=== PATIENT | female | born 1980 | race Caucasian/White ===

== ENCOUNTER 2016-08-20 09:46 | Emergency (ER) | payer OTHER ==
--- NOTE | 2016-08-20 10:48 | UC ---
Throat Pain/Nasal Ghassan HPI - HPI Summary HPI Summary: Mild nasal congestion and cough starting 08/16/16. ST suddenly much worse 2 days ago, difficulty swallowing, fever, malaise. Hx of repeated strep, this feels like that. 12-year-old son also got sick with ST and congestion on same day, has positive RST. Pt had c-spine surgery in late Jun. - History of Current Complaint Chief Complaint: UCRespiratory Stated Complaint: SORE THROAT EAR PAIN Time Seen by Provider: 08/20/16 10:08 Hx Obtained From: Patient Hx Last Menstrual Period: n/a ?: No Onset/Duration: Gradual Onset, Lasting Days Severity: Moderate Cough: Nonproductive Associated Signs & Symptoms: Positive: Nasal Discharge, Fever - Allergies/Home Medications Allergies/Adverse Reactions: Allergies Allergy/AdvReac Type Severity Reaction Status Date / Time ENVIRONMENTAL/SEASONAL Allergy Runny Uncoded 08/20/16 10:21 ALLERGIES nose, Stuffiness, PMH/Surg Hx/FS Hx/Imm Hx Previously Healthy: No - lupus, fibromyalgia Endocrine History Of: Denies: Diabetes, Thyroid Disease Cardiovascular History Of: Reports: Cardiac Disorders - tachacardia, Hypertension Respiratory History Of: Denies: COPD, Asthma GI/ History Of: Denies: Ulcer Neurological History Of: Reports: Migraine Psychological History Of: Reports: Anxiety - NO MEDS, Depression - Surgical History Surgical History: Yes Surgery Procedure, Year, and Place: LEEP. APPENDECTOMY 1989. CERVICAL CA 2006. LAPAROSCOPIC CHOLECYSTECTOMY 1995. tubal ligation. neck fusion vertabrae jun 21, 2016. Uterine Ablasion - Family History Known Family History: Positive: Hypertension - Social History Lives: With Family Alcohol Use: None Substance Use Type: None Smoking Status (MU): Former Smoker Type: Cigarettes Amount Used/How Often: 4 per day Have You Smoked in the Last Year: Yes When Did the Patient Quit Smoking/Using Tobacco: 06/10/14 - Immunization History Most Recent Influenza Vaccination: fall 2015 Most Recent Pneumonia Vaccination: fall 2015 Review of Systems Constitutional: Fever Skin: Negative Eyes: Negative ENT: Sore Throat, Nasal Discharge Respiratory: Cough Cardiovascular: Negative Gastrointestinal: Negative Genitourinary: Negative Motor: Negative Neurovascular: Negative Musculoskeletal: Negative Neurological: Negative Psychological: Negative All Other Systems Reviewed And Are Negative: Yes Physical Exam Triage Information Reviewed: Yes Appearance: Pain Distress - mild, Obese Vital Signs: Initial Vital Signs Temp 97.3 F 08/20/16 10:13 Pulse 103 08/20/16 10:13 Resp 16 08/20/16 10:13 BP 113/82 08/20/16 10:13 Pulse Ox 100 08/20/16 10:13 Vital Signs Reviewed: Yes Eye Exam: Normal Eyes: Positive: Conjunctiva Clear ENT: Positive: Hearing grossly normal, Pharyngeal erythema, TMs normal, Tonsillar exudate Dental Exam: Normal Neck exam: Normal Neck: Positive: Supple, Nontender, No Lymphadenopathy Respiratory Exam: Normal Respiratory: Positive: Chest non-tender, Lungs clear, Normal breath sounds, No respiratory distress, No accessory muscle use Cardiovascular: Positive: No Murmur, Tachycardia Musculoskeletal Exam: Normal Neurological Exam: Normal Psychological Exam: Normal Skin Exam: Normal Throat Pain/Nasal Course/Dx - Differential Dx/Diagnosis Provider Diagnoses: strep pharyngitis Discharge - Discharge Plan Condition: Stable Disposition: HOME Prescriptions: Amoxicillin SUSP* [Amoxicillin 400 MG/5 ML SUSP*] 800 mg PO BID #200 ml Patient Education Materials: Tonsillitis (ED) Additional Instructions: As we discussed, I am treating you clinically for strep given your exam findings and your history of repeated strep. If you are not fever-free within 48 hours, or if you are worsening, please see your primary care provider or return here.
[2016-08-20 10:51] VITALS: BP 113/82
== END 2016-08-20 10:57 | disposition home or self-care (01) ==
LOC: UCEAST 09:46
DX: J02.0 Streptococcal pharyngitis (principal); E66.9 Obesity, unspecified; Z90.49 Acquired absence of other specified parts of digestive tract; Z87.891 Personal history of nicotine dependence
CPT/HCPCS: 99212; G0463

== ENCOUNTER 2017-02-05 07:29 | Emergency (ER) | payer OTHER ==
[2017-02-05 07:35] VITALS: BP 143/95
[2017-02-05] MEDS ORDERED: Albuterol 2.5 MG/3 ML NEB.SOL* (0.083%) INH ONE (08:08)
--- NOTE | 2017-02-05 08:22 | UC ---
Respiratory Complaint HPI - HPI Summary HPI Summary: Patient presents with a past medical history of cervical fusion. She persents today with complaints of persistent coughing after treatment two weeks ago for bronchitis with zpack. She states that she continues to have "coughing fits" that leave her breathless, and she now has pain in the right side of her thoracic back when she coughs. She reports associated wheezing. She denies fever , chills, chest pain, sputum production associated with her cough. - History of Current Complaint Chief Complaint: UCRespiratory Stated Complaint: COUGH SOB Time Seen by Provider: 02/05/17 08:02 Hx Obtained From: Patient Hx Last Menstrual Period: menopause ?: No Onset/Duration: Lasting Weeks Timing: Intermittent Episodes Severity Initially: Severe Pain Intensity: 5 Character: Cough: Nonproductive Aggravating Factors: Nothing Alleviating Factors: Spontaneous Resolution Associated Signs And Symptoms: Positive: Dyspnea, Wheezing - Risk Factors Pulmonary Embolism Risk Factors: Negative Cardiac Risk Factors: Smoking Pseudomonas Risk Factors: Negative Tuberculosis Risk Factors: Negative - Allergies/Home Medications Allergies/Adverse Reactions: Allergies Allergy/AdvReac Type Severity Reaction Status Date / Time ENVIRONMENTAL/SEASONAL Allergy Runny Uncoded 12/28/16 11:00 ALLERGIES nose, Stuffiness, PMH/Surg Hx/FS Hx/Imm Hx Previously Healthy: Yes Respiratory History: Bronchitis, Other - history of smoking. Other Respiratory History: bronchitis - Surgical History Surgical History: Yes Surgery Procedure, Year, and Place: LEEP. APPENDECTOMY 1989. CERVICAL CA 2006. LAPAROSCOPIC CHOLECYSTECTOMY 1995. tubal ligation. neck fusion vert[place]rae jun 21, 2016. Uterine Ablasion - Family History Known Family History: Positive: Hypertension, Diabetes - Social History Alcohol Use: None Substance Use Type: None Smoking Status (MU): Light Every Day Tobacco Smoker Type: Cigarettes Amount Used/How Often: 4 per day Have You Smoked in the Last Year: Yes When Did the Patient Quit Smoking/Using Tobacco: 06/10/14 - Immunization History Most Recent Influenza Vaccination: fall 2015 Most Recent Pneumonia Vaccination: fall 2015 Review of Systems Respiratory: Shortness Of Breath, Cough, Other - wheezing All Other Systems Reviewed And Are Negative: Yes Physical Exam Triage Information Reviewed: Yes Appearance: Well-Appearing Vital Signs: Initial Vital Signs Pulse 101 02/05/17 07:32 Resp 22 02/05/17 07:32 BP 143/95 02/05/17 07:32 Pulse Ox 100 02/05/17 07:32 Vital Signs Reviewed: Yes Eye Exam: Normal ENT Exam: Normal Neck exam: Normal Respiratory: Positive: Rhonchi, Wheezing Cardiovascular Exam: Normal Skin Exam: Normal UC Diagnostic Evaluation - Laboratory O2 Sat by Pulse Oximetry: 100 Re-Evaluation - Re-Evaluation First Eval Change: Improved - patient reported improvement after albuterol treatment. Respiratory Course/Dx - Course Course Of Treatment: Patient presents with persistent coughing and wheezing following a diagnosis of bronchitis, and threatment with zpak. Vital signs were reviewed and her pulse rate was 101 following coughing. A chest xray was negative. She received an albuterol treatment with little improvement reported in her symptomatolgy. She was retreated with doxycycline, prednisone, and albuterol. She was also encouraged to stop smoking. If for any reason her symrpoms worsen, persist and do no improve as anticipated she will need to be seem by a decorating kiln operator. I suspect that she is experiencing reactive airway symtpoms from the respiratory infection, and given her history of smoking and ongoing symtoms at this time retreatment is indicated. - Differential Dx/Diagnosis Differential Diagnosis/HQI/PQRI: Bronchitis Provider Diagnoses: Chronic bronchitis Discharge - Discharge Plan Condition: Stable Disposition: HOME Prescriptions: Albuterol HFA INHALER* [Ventolin HFA Inhaler*] 1 puff INH Q4H PRN #1 mdi PRN Reason: bronchitis reactive airway Benzonatate [TESSALON 200 MG CAP] 200 mg PO TID PRN #21 cap PRN Reason: Cough DOXYcycline CAP(*) [DOXYcycline 100MG CAP(*)] 100 mg PO BID #20 cap predniSONE TAB* [Deltasone TAB*] 20 mg PO DAILY #5 tab Patient Education Materials: Acute Bronchitis (ED), Wheezing (ED) Referrals: Santa De La Torre, SHALE PROCESSING TECHNICIAN [Primary Care Provider] -
--- NOTE | 2017-02-05 08:35 | RAD ---
HISTORY: Persistent cough COMPARISONS: March 12, 2004 VIEWS: 4: Frontal dual-energy and lateral views of the chest. FINDINGS: CARDIOMEDIASTINAL SILHOUETTE: The cardiomediastinal silhouette is normal. MJ: The mj are normal. PLEURA: The costophrenic angles are sharp. No pleural abnormalities are noted. LUNG PARENCHYMA: The lungs are clear. ABDOMEN: The upper abdomen is clear. There is no subphrenic gas. BONES AND SOFT TISSUES: No bone or soft tissue abnormalities are noted. OTHER: None. IMPRESSION: NO ACTIVE CARDIOPULMONARY DISEASE.
== END 2017-02-05 09:02 | disposition home or self-care (01) ==
LOC: UCEAST 07:29
DX: J42 Unspecified chronic bronchitis (principal); Z78.0 Asymptomatic menopausal state; Z87.891 Personal history of nicotine dependence; Z85.41 Personal history of malignant neoplasm of cervix uteri
CPT/HCPCS: 71020; 99212; G0463

== ENCOUNTER 2019-02-17 15:05 | Emergency (ER) | payer OTHER ==
--- OUTSIDE RECORDS SUMMARY | 2019-02-17 15:33 | XMS REPORT | Continuity of Care Document ---
:1980 External Reference #:[id number] Author Name Coty Chauhan NP (transmitted by agent of provider Minerva Luna) Address [address] [place] [address] Care Team Providers Name Role Phone Santa De La Torre A.N.P - Nurse Care Team Information Technician'S Helper [phone] Practitioner Problems Active Problems Provider Date Insomnia Rosana Pacheco M.D. Onset: 07/05/2011 Ex-smoker Rosana Pacheco M.D. Onset: 07/05/2011 Gastroesophageal reflux disease Rosana Pacheco M.D. Onset: 07/05/2011 Sleep apnea Rosana Pacheco M.D. Onset: 07/05/2011 Generalized anxiety disorder Rosana Pacheco M.D. Onset: 07/05/2011 Obesity Rosana Pacheco M.D. 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 Onset: 01/26/2019 Social History Type Date Description Comments Sex Unknown Tobacco Use Start: Unknown End: Former Cigarette Smoker Smoked 1 1/2 ppd Unknown for 19 years Tobacco Use Start: Unknown Currently smokes 1-5 Cigarettes Daily Smoking Status Reviewed: 02/02/19 Currently smokes 1-5 Cigarettes Daily ETOH Use Denies alcohol use Recreational Drug Use Denies Drug Use Tobacco Use Start: Unknown End: Patient is a former Unknown smoker Exercise Type/Frequency Exercises regularly Allergies, Adverse Reactions, Alerts Active Allergies Reaction Severity Comments Date seasonal 07/05/2011 Medications Active Medications SIG Qnty Indications Ordering Date Provider Cholestyramine please take 1units Coty Chauhan, 02/02/2019 4gm Packet every other day DUST BRUSH ASSEMBLER until symptoms resolve Metoprolol Tartrate 1 by mouth Kelly Preston, 01/26/2019 100mg daily M.D. Tablets Ibgard samples given 5caps Coty Lizers, 01/23/2019 90mg Capsules ER DUST BRUSH ASSEMBLER Ranitidine 150 Maximum 2 tablets at 30tabs Coty Chauhan, 01/12/2019 Strength hour of sleep DUST BRUSH ASSEMBLER 150mg Tablets as directed Miralax three samples, 357gm Cotytano Chauhan, 01/12/2019 3350NF Powder take one 8 oz DUST BRUSH ASSEMBLER glass nightly Compression Stockings Wear daily 2units Mandy Dharmesh, 04/12/2014 20-30 N.P. Misc Meloxicam take one tab Unknown 7.5mg Tablets twice daily as needed for pain Vitamin C 1 by mouth Unknown 250mg Tablets every day Montelukast Sodium 1 by mouth Unknown 10mg Tablets every day Aripiprazole 1 by mouth Unknown 5mg Tablets every day Hydroxychloroquine take one tablet Unknown Sulfate by mouth twice 200mg Tablets a day Amlodipine Besylate 1 by mouth Unknown 5mg Tablets every day Duloxetine HCL 1 by mouth Unknown 60mg Caps DR every day Part Quetiapine Fumarate 1 at bedtime Unknown 50mg Tablets Folic Acid take one Unknown 1mg Tablets capsule/tablet daily by mouth Cyclobenzaprine HCL take 1 tab by Unknown 10mg mouth 2-3 times Tablets a day as needed Oxybutynin Chloride ER 1 by mouth Unknown 5mg every day Tablets ER 24HR Topiramate 1 tab by mouth Unknown 50mg Tablets twice a day Aspirin 81 Low Dose 1 by mouth Unknown 81mg every day Chewtabs Lorazepam 1 po bid d Unknown 1mg Tablets Nortriptyline HCL take one tablet Unknown 50mg Capsules by mouth daily. Latuda 1 by mouth Unknown 40mg Tablets every day Metformin HCL 2 by mouth Unknown 500mg Tablets twice a day Prednisone 1 by mouth Unknown 5mg Tablets every day Basaglar Kwikpen inject 10units Unknown 100Unit/ML s/c once daily Solution Pen-Inject Control Pills qd Unknown Ambien CR 1 every night Unknown 12.5mg Tablets ER at bedtime as needed mdd 1 mdd 1 mdd 1 Potassium Chloride ER Take One Tablet Unknown 10Meq By Mouth Every Tablets ER Day With Food Gabapentin Take One Unknown 300mg Capsules Capsule By Mouth AT Bedtime Mupirocin Apply To Leg Unknown 2% Ointment Wounds Two Times A Day For Seven Days Vitamin D3 Take One Unknown 2000Unit Capsules Capsule By Mouth Every Day Olanzapine Take One Tablet Unknown 2.5mg Tablets By Mouth AT Bedtime Nabumetone Take One Tablet Unknown 500mg Tablets By Mouth Twice A Day Cetirizine HCL Take One Tablet Unknown 10mg Tablets By Mouth Every Day Iron Take One Tablet Unknown 325(65Fe) mg Tablets By Mouth Twice A Day With Food Torsemide Take One Tablet Unknown 20mg Tablets By Mouth Every Day Ropinirole HCL Take One Tablet Unknown 1mg Tablets By Mouth AT Bedtime Pantoprazole Sodium 1 po qd Unknown 40mg Tablets DR Vitamin B-12 Take One Tablet Unknown 500mcg Tablets By Mouth Every Day Lyrica 1 capsule by Unknown 100mg Capsules mouth twice a day Tizanidine HCL 1 cap by mouth Unknown 2mg Capsules every 6 hours as needed Methotrexate 8 tbs by mouth Unknown 2.5mg Tablets every week Morphine Sulfate Take One Tablet Unknown 15mg Tablets By Mouth Twice A Day as Needed For Pain Maximum Daily Dose 2 Morphine Sulfate ER Take One Tablet Unknown 30mg By Mouth Twice Tablets ER A Day Maximum Daily Dose 2 Carbidopa-Levodopa take 1 po qd Unknown 10-100mg Tablets Immunizations Description No Information Available Vital Signs Date Vital Result Comment 02/02/2019 4:03pm Height 64 inches 5'4" Weight 261.00 lb Heart Rate 101 /min BP Systolic 111 mmHg BP Diastolic 79 mmHg O2 % BldC Oximetry 97 % BMI (Body Mass Index) 44.8 kg/m2 01/26/2019 2:03pm Height 64 inches 5'4" Weight 267.00 lb with shoes Heart Rate 81 /min BP Systolic Sitting 120 mmHg Rue, 120/79 Lue BP Diastolic Sitting 72 mmHg Rue, 120/79 Lue BP Systolic Standing 120 mmHg Lue BP Diastolic Standing 79 mmHg Lue BMI (Body Mass Index) 45.8 kg/m2 Ejection Fraction 45-50% Echo 12/16/18 Results Test Date Facility Test Result H/L Range Note CBC No Diff 01/28/2019 [facility] White Blood 14.6 10^3/uL High 3.5-10.[address] [place] [address] [phone] Red Blood Count 3.75 10^6/uL Normal 3.70-4.87 Hemoglobin 12.1 g/dL Normal 12.0-16.0 Hematocrit 37 % Normal 35-47 Mean Corpuscular Volume 97 fL Normal 80-97 Mean Corpuscular Hemoglobin 32 pg High 27-31 Mean Corpuscular HGB Conc 33 g/dL Normal 31-36 Red Cell Distribution Width 16 % High 10-15 Platelet Count 478 10^3/uL High 150-450 Mean Platelet Volume 7.4 fL Normal 7.4-10.4 Comp Metabolic 01/28/2019 [facility] Sodium 140 mmol/L Normal 135-[address] [place] [address] [phone] Potassium 3.8 mmol/L Normal 3.5-5.0 Chloride 105 mmol/L Normal 101-111 Co2 Carbon Dioxide 25 mmol/L Normal 22-32 Anion Gap 10 mmol/L Normal 2-11 Glucose 100 mg/dL Normal 70-100 Blood Urea Nitrogen 15 mg/dL Normal 6-24 Creatinine 0.90 mg/dL Normal 0.51-0.95 BUN/Creatinine Ratio 16.7 Normal 8-20 Calcium 9.5 mg/dL Normal 8.6-10.3 Total Protein 6.3 g/dL Low 6.4-8.9 Albumin 3.9 g/dL Normal 3.2-5.2 Globulin 2.4 g/dL Normal 2-4 Albumin/Globulin Ratio 1.6 Normal 1-3 Total Bilirubin 0.30 mg/dL Normal 0.2-1.0 Alkaline Phosphatase 82 U/L Normal 34-104 Alt 22 U/L Normal 7-52 Ast 23 U/L Normal 13-39 Egfr Non- 69.7 >60 Egfr 84.3 >60 1 Laboratory test 01/28/2019 [facility] C Reactive 59.93 mg/L High <8.[address] [place] [address] [phone] Hemoglobin A1c (Glyco HGB) 5.9 % High 4.0-5.6 2 1 Because ethnic data is not always readily available, this report includes an eGFR for both -Americans and non- Americans. The National Kidney Disease Education Program (NKDEP) does not endorse the use of the MDRD equation for patients that are not between the ages of 18 and 70, are , have extremes of body size, muscle mass, or nutritional status, or are non- or non-. According to the National Kidney Foundation, irrespective of diagnosis, the stage of the disease is based on the level of kidney function: Stage Description GFR(mL/min/1.73 m(2)) 1 Kidney damage with normal or decreased GFR 90 2 Kidney damage with mild decrease in GFR 60-89 3 Moderate decrease in GFR 30-59 4 Severe decrease in GFR 15-29 5 Kidney failure <15 (or dialysis) 2 Therapeutic target for the treatment of diabetes mellitus patients is <7% HBA1C, and in selective patients <6.0%. Please refer to [employer] diabetic care guidelines for further information. Procedures Date Code Description Status 01/26/2019 71974 EKG Tracing & Interpretation Completed 12/16/2018 69030 ECHO Transthorasic Realtime 2D W Doppler & Color Flow Completed Hosp 01/20/2016 74712535 Colonoscopy Completed Medical Devices Description No Information Available Encounters Type Date Location Provider Dx Diagnosis Office Visit 01/12/2019 [facility] Gastroenterology Coty Chauhan NP K58.8 Other irritable 10:15a bowel syndrome K59.9 Functional intestinal disorder, unspecified K21.0 Gastro-esophageal reflux disease with esophagitis K29.70 Gastritis, unspecified, without bleeding Z68.42 Body mass index (BMI) 45.0-49.9, adult Office Visit 01/08/2019 Neurosurgery Luis F 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 01/26/2019 R06.02 Shortness of breath Kelly Johnston M.D. 01/26/2019 I10 Essential (primary) hypertension Kelly Johnston M.D. 01/26/2019 Z82.49 Family history of ischemic heart disease Kelly Johnston M.D. and other diseases of the circulatory system 01/26/2019 M32.9 Systemic lupus erythematosus, unspecified Kelly Johnston M.D. 01/26/2019 E11.8 Type 2 diabetes mellitus with unspecified Kelly Johnston M.D. complications 01/12/2019 K58.8 Other irritable bowel syndrome Coty Chauhan NP 01/12/2019 K59.9 Functional intestinal disorder, unspecified Coty Chauhan NP 01/12/2019 K21.0 Gastro-esophageal reflux disease with Coty Chauhan NP esophagitis 01/12/2019 K29.70 Gastritis, unspecified, without bleeding Coty Chauhan NP 01/12/2019 Z68.42 Body mass index (BMI) 45.0-49.9, adult Coty Chauhan NP 01/08/2019 M47.816 Lumbar spondylosis JOSÉ MIGUEL Brenner 12/16/2018 I42.9 Cardiomyopathy, unspecified Eddie Garcia M.D. Plan of Treatment Future Appointment(s):03/02/2019 3:30 pm - JOSÉ MIGUEL Brenner at [facility]05/05/2019 11:00 am - Angelique Beal MD at [facility] Vmpylhruguu24/06/ 2019 2:30 pm - Aarti Mondragon N.PMarcella at [facility]02/05/2019 10: 20 am - Kelly Johnston M.D. at [facility] [place] [facility] [place] Functional Status Description No Information Available Mental Status Description No Information Available Referrals Description No Information Available
--- OUTSIDE RECORDS SUMMARY | 2019-02-17 15:33 | XMS REPORT | Continuity of Care Document ---
:1980 External Reference #:[id number] Author Name Daisha Vilchis MD (transmitted by agent of provider Earlene Brown) Address [address] [facility], [address] [address] Care Team Providers Name Role Phone Santa De La Torre A.N.P - Nurse Care Team Information Correction Officer [employer] [phone] Practitioner Problems Active Problems Provider Date Insomnia [...] smokes 1-5 Cigarettes Daily Smoking Status Reviewed: 02/04/19 Currently smokes 1-5 Cigarettes Daily ETOH Use Denies alcohol use Recreational Drug Use Denies Drug Use Tobacco Use Start: Unknown End: Patient is a former Unknown smoker Exercise Type/Frequency Exercises regularly Allergies, Adverse Reactions, Alerts Active Allergies Reaction Severity Comments Date seasonal 07/05/2011 Medications Active Medications SIG Qnty Indications Ordering Date Provider Levalbuterol Tartrate 1 puff 2-3 15gm R06.02 Daisha Vilchis, 02/04/2019 45mcg/Act times daily as MD Aerosol needed for sob Advair Diskus 1 puff Twice R06.02 Daisha Vilchis, 02/04/2019 250-50mcg/Dose Daily MD Aerosol Cholestyramine please take 1units Coty Chauhan, 02/02/2019 4gm Packet every other day MANAGER SHIP until symptoms resolve Metoprolol Tartrate 1 by mouth Kelly Johnston, 01/26/2019 100mg daily M.D. Tablets Ibgard samples given 5caps Coty Chauhan, 01/23/2019 90mg Capsules ER MANAGER SHIP Ranitidine 150 Maximum 2 tablets at 30tabs Coty Chauhan, 01/12/2019 Strength hour of sleep MANAGER SHIP 150mg Tablets as directed Miralax three samples, 357gm Coty Chauhan, 01/12/2019 3350NF Powder take one 8 oz MANAGER SHIP glass nightly Compression Stockings Wear daily 2units Mandy Barroso, 04/12/2014 20-30 N.P. Misc Folic Acid take one Unknown 1mg Tablets capsule/tablet daily by mouth Quetiapine Fumarate 1 at bedtime Unknown 50mg Tablets Duloxetine HCL 1 by mouth Unknown 60mg Caps DR every day Part Amlodipine Besylate 1 by mouth Unknown 5mg Tablets every day Hydroxychloroquine take one tablet Unknown Sulfate by mouth twice 200mg Tablets a day Aripiprazole 1 by mouth Unknown 5mg Tablets every day Montelukast Sodium 1 by mouth Unknown 10mg Tablets every day Vitamin C 1 by mouth Unknown 250mg Tablets every day Meloxicam take one tab Unknown 7.5mg Tablets twice daily as needed for pain Cyclobenzaprine HCL take 1 tab by Unknown [...] Available Vital Signs Date Vital Result Comment 02/04/2019 10:42am Height 64 inches 5'4" Weight 261.00 lb Heart Rate 92 /min BP Systolic Sitting 120 mmHg BP Diastolic Sitting 60 mmHg O2 % BldC Oximetry 97 % BMI (Body Mass Index) 44.8 kg/m2 Neck Circumference in inches 18.25 02/02/2019 4:03pm Height 64 inches 5'4" Weight 261.00 lb Heart Rate 101 /min BP Systolic 111 mmHg BP Diastolic 79 mmHg O2 % BldC Oximetry 97 % BMI (Body Mass Index) 44.8 kg/m2 Results Test Date Facility Test Result H/L Range Note CBC No Diff 01/28/2019 [facility] White Blood 14.6 10^3/uL High 3.5-10.[address] [place] [address] [phone] Red Blood Count 3.75 10^6/uL Normal 3.70-4.87 Hemoglobin 12.1 g/dL Normal 12.0-16.0 Hematocrit 37 % Normal 35-47 Mean Corpuscular Volume 97 fL Normal 80-97 Mean Corpuscular Hemoglobin 32 pg High 27-31 Mean Corpuscular HGB Conc 33 g/dL Normal 31-36 Red Cell Distribution Width 16 % High 10-15 Platelet Count 478 10^3/uL High 150-450 Mean Platelet Volume 7.4 fL Normal 7.4-10.4 Comp Metabolic 01/28/2019 [facility] Sodium 140 mmol/L Normal 135-[address] [place] [address] [phone] Potassium 3.8 mmol/L Normal 3.5-5.0 Chloride 105 [...] Egfr 84.3 >60 1 Laboratory test 01/28/2019 [facility] C Reactive 59.93 mg/L High <8.[address] [place] [address] [phone] Hemoglobin A1c (Glyco HGB) 5.9 % High [...] in selective patients <6.0%. Please refer to [employer] diabetic care guidelines for further information. Procedures Date Code Description Status 01/26/2019 36294 EKG Tracing & Interpretation Completed 12/16/2018 90285 ECHO Transthorasic Realtime 2D W Doppler & Color Flow Completed Hosp 01/20/2016 35036403 Colonoscopy Completed Medical Devices Description No Information Available Encounters Type Date Location Provider Dx Diagnosis Office Visit 01/26/2019 [facility] Kelly Johnston, I42.9 Cardiomyopathy, 2:10p Of Mindi MChad unspecified R06.02 Shortness of breath I10 Essential (primary) hypertension Z82.49 Family hx of ischem heart dis and oth dis of the circ sys M32.9 Systemic lupus erythematosus, unspecified E11.8 Type 2 diabetes mellitus with unspecified complications Office Visit 01/12/2019 10:15a [facility] Coty Chauhan, 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 [...] 01/12/2019 K59.9 Functional intestinal disorder, unspecified Coty Chauhan, MEREDITH 01/12/2019 K21.0 Gastro-esophageal reflux disease with Coty Chauhan MANAGER SHIP esophagitis 01/12/2019 K29.70 Gastritis, unspecified, without bleeding Coty Chauhan NP 01/12/2019 Z68.42 Body mass index (BMI) 45.0-49.9, adult Coty Chauhan NP 01/08/2019 M47.816 Lumbar spondylosis JOSÉ MIGUEL Brenner 12/16/2018 I42.9 Cardiomyopathy, unspecified Eddie Garcia M.D. Plan of Treatment Future Appointment(s):03/03/2019 2:30 pm - Karen Guzman NP at [facility]03/02/2019 3:30 pm - JOSÉ MIGUEL Brenner at [facility]05/05/2019 11:00 am - Angelique Beal MD at [facility] Ewzpdzxdghl44/06/2019 2:30 pm - Aarti Mondragon NMarcellaP. at [facility]02/05/2019 10:20 am - Kelly Johnston M.D. at [facility] AT [facility] - Daisha Vilchis, MDR06.02 Shortness of breathNew Medication: Levalbuterol Tartrate 45 mcg/Act - 1 puff 2-3 times daily as needed for sobAdvair Diskus 250-50 mcg/Dose - 1 puff Twice DailyNew Xrays:Chest PA & Lat 2 VWS, Ordered: 02/04/19New Orders:6 Minute Walk, Ordered: 02/04/19PFTW/ Spirometry Vol Pre/Post Bronchdilat Dlco Complete, Ordered: 02/04/19Follow up:3 weeks SM Functional Status Description No Information Available Mental Status Description No Information Available Referrals Description No Information Available
--- OUTSIDE RECORDS SUMMARY | 2019-02-17 15:33 | XMS REPORT | Continuity of Care Document ---
:1980 External Reference #:[id number] Author Name Kelly Johnston M.D. (transmitted by agent of provider Dayna Katz) Address [address] [place] [id number] Care Team Providers Name Role Phone Santa De La Torre A.N.P - Nurse Care Team Information Legal Word Processor [phone] Practitioner Problems Active Problems Provider Date Insomnia [...] smokes 1-5 Cigarettes Daily Smoking Status Reviewed: 01/26/19 Currently smokes 1-5 Cigarettes Daily ETOH Use Denies alcohol use Recreational Drug Use Denies Drug Use Tobacco Use Start: Unknown End: Patient is a former Unknown smoker Exercise Type/Frequency Exercises regularly Allergies, Adverse Reactions, Alerts Active Allergies Reaction Severity Comments Date seasonal 07/05/2011 Medications Active Medications SIG Qnty Indications Ordering Date Provider Metoprolol Tartrate 1 by mouth Kelly Johnston 01/26/2019 100mg daily M.D. Tablets Ibgard samples given 5caps Coty Chauhan, 01/23/2019 90mg Capsules ER PORTRAIT ARTIST Ranitidine 150 Maximum 2 tablets at 30tabs Coty Chauhan, 01/12/2019 Strength hour of sleep PORTRAIT ARTIST 150mg Tablets as directed Miralax three samples, 357gm Coty Chauhan, 01/12/2019 3350NF Powder take one 8 oz PORTRAIT ARTIST glass nightly Compression Stockings Wear daily 2units Mandy Barroso, 04/12/2014 20-30 N.P. Misc Meloxicam take one [...] Available Vital Signs Date Vital Result Comment 01/26/2019 2:03pm Height 64 inches 5'4" Weight 267.00 lb with shoes Heart Rate 81 /min BP Systolic Sitting 120 mmHg Rue, 120/79 Lue BP Diastolic Sitting 72 mmHg Rue, 120/79 Lue BP Systolic Standing 120 mmHg Lue BP Diastolic Standing 79 mmHg Lue BMI (Body Mass Index) 45.8 kg/m2 Ejection Fraction 45-50% Echo 12/16/18 01/12/2019 10:17am Height 64 inches 5'4" Weight 270.00 lb Heart Rate 95 /min BP Systolic 102 mmHg BP Diastolic 69 mmHg O2 % BldC Oximetry 98 % BMI (Body Mass Index) 46.3 kg/m2 Results Description No Information Available Procedures Date Code Description Status 01/26/2019 41614 EKG Tracing & Interpretation Completed 12/16/2018 94180 ECHO Transthorasic Realtime 2D W Doppler & Color Flow Completed Hosp 01/20/2016 [id number] Colonoscopy Completed Medical Devices Description No Information Available Encounters Description No Information Available Assessments Date Code Description Provider 01/26/2019 I42.9 [...] Eddie Garcia M.D. Plan of Treatment Future Appointment(s):02/13/2019 2:30 pm - Aarti Mondragon N.P. at [facility]02/05/2019 10:20 am - Kelly Johnston M.D. at [facility] AT [facility]02/02/2019 4:00 pm - Coty Chauhan NP at [facility] Rhofmbfauefokevw98/06 /2019 1:00 pm - JOSÉ MIGUEL Brenner at [facility]01/28/2019 9: 45 am - Angelique Beal MD at [facility] Gngiexqvviq46/28/2019 11:00 am - Daisha Vilchis MD at [facility]01/26/2019 - Kelly Johnston M.D.I42.9 Cardiomyopathy, unspecifiedNew Orders:Stress Test, Treadmill, No Imaging, Ordered: 01/26/19Comments:Possibly change medications in the future for this, but wait until after your stress test.Follow up:Release of records Dr Goodrich, most recent ECG, echo, stress test, office note. OV after stress test.R06.02 Shortness of breathComments:Hx asthma and sleep apnea.I10 Essential (primary) hypertensionComments:Well snhgtcyyuuV67.49 Family history of ischemic heart disease and other diseases of the circulatory oeilthZ79.9 Systemic lupus erythematosus, gifooxfqptqV44.8 Type 2 diabetes mellitus with unspecified complications Functional Status Description No Information Available Mental Status Description No Information Available Referrals Description No Information Available
[2019-02-17] MEDS ORDERED: Ketorolac *IM* INJ* 60 MG/2 ML VIAL IM ONE (16:16)
[2019-02-17 16:39] VITALS: BP 126/86
--- NOTE | 2019-02-18 08:24 | ED ---
Throat Pain/Nasal Congestion - HPI Summary HPI Summary: Patient is a 38-year-old female who presents emergency department for dental pain times several days. Patient notes pain to lower molars on the right and the left. Patient denies fever, vomiting, facial swelling. Symptoms are mild in severity. Touching affected areas and eating makes symptoms worse. Nothing makes symptoms better. Patient has a long history past medical history including diabetes and chronic pain. Patient notes has been taking Tylenol and Motrin with no relief of pain. Patient states she cannot see her dentist for 2 weeks. - History of Current Complaint Chief Complaint: EDDentalPain Time Seen by Provider: 02/17/19 15:52 Hx Obtained From: Patient - Allergies/Home Medications Allergies/Adverse Reactions: Allergies Allergy/AdvReac Type Severity Reaction Status Date / Time ENVIRONMENTAL/SEASONAL Allergy Runny Uncoded 02/17/19 14:31 ALLERGIES nose, Stuffiness, PMH/Surg Hx/FS Hx/Imm Hx Previously Healthy: Yes Endocrine/Hematology History: Reports: Hx Diabetes, Hx Systemic Lupus Erythematosus Denies: Hx Thyroid Disease Cardiovascular History: Reports: Hx Hypertension Denies: Hx Pacemaker/ICD Respiratory History: Reports: Hx Asthma, Hx Seasonal Allergies, Other Respiratory Problems/Disorders - SMOKER Denies: Hx Chronic Obstructive Pulmonary Disease (COPD), Hx Sleep Apnea - TO BE CHECKED ON 02/26/2013 GI History: Reports: Hx Gastroesophageal Reflux Disease, Hx Irritable Bowel Denies: Hx Ulcer History: Reports: Hx Kidney Infection - HX OF - NONE NOW, Other Problems/ Disorders - HX OF UTI - NONE NOW Denies: Hx Dialysis Musculoskeletal History: Reports: Hx Fibromyalgia, Other Musculoskeletal History - obesity Sensory History: Reports: Hx Contacts or Glasses Denies: Hx Hearing Aid Opthamlomology History: Reports: Hx Contacts or Glasses Neurological History: Reports: Hx Migraine Psychiatric History: Reports: Hx Anxiety - NO MEDS, Hx Depression Denies: Hx Panic Disorder - Cancer History Cancer Type, Location and Year: Cervical: Had cervix removed Hx Chemotherapy: No Hx Radiation Therapy: No - Surgical History Surgery Procedure, Year, and Place: LEEP. APPENDECTOMY 1989. CERVICAL CA 2006. LAPAROSCOPIC CHOLECYSTECTOMY 1995. tubal ligation. neck fusion vertabrae jun 21, 2016. Uterine Ablasion Hx Anesthesia Reactions: No Infectious Disease History: No Infectious Disease History: Denies: Hx Clostridium Difficile, Hx Hepatitis, Hx Human Immunodeficiency Virus (HIV), Hx of Known/Suspected MRSA, Hx Shingles, Hx Tuberculosis, Hx Known/ Suspected VRE, Hx Known/Suspected VRSA, History Other Infectious Disease, Traveled Outside the [place] in Last 30 Days - Family History Known Family History: Positive: Hypertension, Diabetes, Non-Contributory - Social History Occupation: Unemployed Lives: With Family Alcohol Use: None Substance Use Type: Reports: None Smoking Status (MU): Never Smoked Tobacco Type: Cigarettes Amount Used/How Often: 4 per day Have You Smoked in the Last Year: Yes Review of Systems Constitutional: Negative Negative: Fever, Chills Positive: Dental Pain Gastrointestinal: Negative Negative: Vomiting, Nausea All Other Systems Reviewed And Are Negative: Yes Physical Exam Triage Information Reviewed: Yes Vital Signs On Initial Exam: Initial Vitals Temp Pulse Resp BP Pulse Ox 96.6 F 92 18 114/85 97 02/17/19 15:08 02/17/19 15:08 02/17/19 15:08 02/17/19 15:08 02/17/19 15:08 Vital Signs Reviewed: Yes Appearance: Positive: Well-Appearing - Pt. sitting on bed in NAD. Family member present. Skin: Positive: Warm, Dry Head/Face: Positive: Normal Head/Face Inspection Eyes: Positive: Normal, EOMI Dental: Positive: Other - Poor dentition throughout with numerous caries. No drainable abscess noted. No facial edema noted. No trismus or submandibular edema. Neck: Positive: Supple, Nontender, No Lymphadenopathy Neurological: Positive: Normal, CN Intact II-III Psychiatric: Positive: Affect/Mood Appropriate Diagnostics - Vital Signs Vital Signs Temp Pulse Resp BP Pulse Ox 02/17/19 16:37 97.9 F 85 16 126/86 96 02/17/19 15:08 96.6 F 92 18 114/85 97 - Laboratory Lab Statement: Any lab studies that have been ordered have been reviewed, and results considered in the medical decision making process. EENT Course/Dx - Course Course Of Treatment: Patient with dentalgia. Afebrile well-appearing. We'll place a course of penicillin. Patient was given a dose of Toradol here for pain. Advised to continue Tylenol or Motrin for pain as directed at home. To follow stable. Patient understands and agrees with plan. - Differential Diagnoses Differential Diagnoses: Dental Abscess, Dental Caries, Gingivitis - Diagnoses Provider Diagnoses: Dentalgia Discharge ED - Sign-Out/Discharge Documenting (check all that apply): Patient Departure Patient Received Moderate/Deep Sedation with Procedure: No - Discharge Plan Condition: Good Disposition: HOME Prescriptions: Penicillin VK 500 MG TAB(NF) [Penicillin VK 500 mg Tab] 500 mg PO QID #40 tab Patient Education Materials: Toothache (ED) Referrals: Santa De La Torre, TACO MAKER [Primary Care Provider] - Additional Instructions: Follow up with your dentist as soon as possible Take antibiotic as directed Continue tylenol or motrin for pain as directed Return to ER if symptoms change or worsen - Billing Disposition and Condition Condition: GOOD Disposition: Home - Attestation Statements Provider Attestation: I was available for consultation for this patient. I did not evaluate the patient or participate in any medical decision making or disposition decisions unless I am specifically named in the chart as having consulted on the patient. If I have consulted on the patient, please see my own ED note on the patient encounter. Chanelel Noel MD
== END 2019-02-17 16:38 | disposition home or self-care (01) ==
LOC: ED 15:05
DX: K08.89 Other specified disorders of teeth and supporting structures (principal); K02.9 Dental caries, unspecified; E11.9 Type 2 diabetes mellitus without complications; M32.9 Systemic lupus erythematosus, unspecified; I10 Essential (primary) hypertension; M79.7 Fibromyalgia; G89.29 Other chronic pain
CPT/HCPCS: 96372; 99282; J1885

== ENCOUNTER 2019-07-06 08:19 | Emergency (ER) | payer OTHER ==
[2019-07-06 08:24] VITALS: BP 132/94
--- NOTE | 2019-07-06 08:38 | ED ---
Throat Pain/Nasal Congestion - HPI Summary HPI Summary: This patient is a 38 year old female presenting to [facility] with a chief complaint of right-sided, lower dental pain since 2 days ago. She states the top part of one of her teeth on the right-side fell off and she swallowed it. She states she cannot get a dental appointment this morning due to her dentist being booked and they told her to come here. [facility] gave her an appointment in one week. She states she has taken 1000 mg Tylenol and 600 mg Ibuprofen at 0400 this date to no relief. She states she has had dental problems before. no intraoral edema. No difficulty swallowing. + temperature sensitivity She denies any medication allergies. Patients medications as entered in EMR reviewed this visit. Pt is on Methotrexate for SLE - History of Current Complaint Chief Complaint: EDDentalPain Time Seen by Provider: 07/06/19 08:29 Hx Obtained From: Patient Onset/Duration: Lasting Days - Allergies/Home Medications Allergies/Adverse Reactions: Allergies Allergy/AdvReac Type Severity Reaction Status Date / Time ENVIRONMENTAL/SEASONAL Allergy Runny Uncoded 07/06/19 08:23 ALLERGIES nose, Stuffiness, PMH/Surg Hx/FS Hx/Imm Hx Previously Healthy: No - + methotrexate Endocrine/Hematology History: Reports: Hx Diabetes, Hx Systemic Lupus Erythematosus Denies: Hx Thyroid Disease Cardiovascular History: Reports: Hx Hypertension Denies: Hx Pacemaker/ICD Respiratory History: Reports: Hx Asthma, Hx Seasonal Allergies, Other Respiratory Problems/Disorders - SMOKER Denies: Hx Chronic Obstructive Pulmonary Disease (COPD), Hx Sleep Apnea - TO BE CHECKED ON 02/26/2013 GI History: Reports: Hx Gastroesophageal Reflux Disease, Hx Irritable Bowel Denies: Hx Ulcer History: Reports: Hx Kidney Infection - HX OF - NONE NOW, Other Problems/ Disorders - HX OF UTI - NONE NOW Denies: Hx Dialysis Musculoskeletal History: Reports: Hx Fibromyalgia, Other Musculoskeletal History - obesity Sensory History: Reports: Hx Contacts or Glasses Denies: Hx Hearing Aid Opthamlomology History: Reports: Hx Contacts or Glasses Neurological History: Reports: Hx Migraine Psychiatric History: Reports: Hx Anxiety - NO MEDS, Hx Depression Denies: Hx Panic Disorder - Cancer History Cancer Type, Location and Year: Cervical: Had cervix removed Hx Chemotherapy: No Hx Radiation Therapy: No - Surgical History Surgery Procedure, Year, and Place: LEEP. APPENDECTOMY 1989. CERVICAL CA 2006. LAPAROSCOPIC CHOLECYSTECTOMY 1995. tubal ligation. neck fusion vertabrae 5 jun 21, 2016. Uterine Ablasion Hx Anesthesia Reactions: No Infectious Disease History: No Infectious Disease History: Denies: Hx Clostridium Difficile, Hx Hepatitis, Hx Human Immunodeficiency Virus (HIV), Hx of Known/Suspected MRSA, Hx Shingles, Hx Tuberculosis, Hx Known/ Suspected VRE, Hx Known/Suspected VRSA, History Other Infectious Disease, Traveled Outside the [place] in Last 30 Days - Family History Known Family History: Positive: Hypertension, Diabetes, Non-Contributory - Social History Occupation: Disabled Lives: With Family Alcohol Use: None Substance Use Type: Reports: None Smoking Status (MU): Never Smoked Tobacco Type: Cigarettes Amount Used/How Often: 4 per day Have You Smoked in the Last Year: Yes Review of Systems Negative: Fever Positive: Dental Pain All Other Systems Reviewed And Are Negative: Yes Physical Exam - Summary Physical Exam Summary: Vital Signs Reviewed: Yes A+Ox3, mild discomfort, non toxic Eyes: Conjunctiva Clear, ALBERTINA. EOM intact and full ENT: Hearing grossly normal TM x 2 clear, turbinates wnl, mmoist, uvula midline , no exudate, no erythema dental: pt with diffusely poor dentition, multiple caries, broken teeth #28 broken at gumline + TTP mild edema gumline, buccal margin no edema, no fluctuance no bleeding no intraoral edema Neck: Positive: Supple Respiratory: Positive: No respiratory distress, No accessory muscle use + CTA throughout no w/r Cardiovascular: RRR nl s1, s2 no m/r CBT <2 sec abd soft + BS nt/nd no guarding, no distension Musculoskeletal Exam: MANUEL x 4 without difficulty Strength Intact, ROM Intact Neurological: Positive: Alert, + sensation throughout Psychological: Positive: Normal Response To examiner Skin: Positive: no rash, no ecchymosis Triage Information Reviewed: Yes Vital Signs On Initial Exam: Initial Vitals Temp Pulse Resp BP Pulse Ox 96.1 F 122 19 132/94 95 07/06/19 08:22 07/06/19 08:22 07/06/19 08:22 07/06/19 08:22 07/06/19 08:22 Vital Signs Reviewed: Yes Procedures - Sedation Patient Received Moderate/Deep Sedation with Procedure: No Diagnostics - Vital Signs Vital Signs Temp Pulse Resp BP Pulse Ox 07/06/19 08:22 96.1 F 122 19 132/94 95 - Laboratory Lab Statement: Any lab studies that have been ordered have been reviewed, and results considered in the medical decision making process. EENT Course/Dx - Course Course Of Treatment: Patient presents to urgent care reporting progressive dental pain for 2 days. Patient's age appropriate to 3 days ago. Patient's been taking Motrin and Tylenol using Anbesol with little improvement. On exam patient appears uncomfortable but nontoxic. Patient with diffusely poor dentition. #28 tooth broke about the gumline. Tender to palpate. Mild edema on the buccal aspect of the gumline. No bleeding. No fluctuance. No obvious abscess. Patient is immunocompromised as she is on methotrexate for lupus. We' ll start patient advised. Swish and spit rinses. More in order for viscous lidocaine. Discussed with patient can only use Q-tip applied to affected tooth every 4 hours as instructed. Discussed with patient the risks of overuse. Patient is understanding of plan. Patient does have an appointment [facility]. Strict return precautions discussed per patient comfortable in agreement. - Diagnoses Provider Diagnoses: Pain, dental Discharge ED - Sign-Out/Discharge Documenting (check all that apply): Patient Departure - Discharge - Discharge Plan Condition: Stable Disposition: HOME Prescriptions: Ibuprofen [Ibu] 600 mg PO Q6HR PRN #21 tablet PRN Reason: Pain - Mild Lidocaine 2% VISCOUS* 100 ml TOPICAL Q4HR PRN #1 btl PRN Reason: dental pain Penicillin VK 500 MG TAB(NF) [Penicillin VK 500 mg Tab] 500 mg PO TID #30 tab Patient Education Materials: Toothache (ED) Referrals: Santa De La Torre LACE WEAVER [Primary Care Provider] - Additional Instructions: - Okay to alternate ibuprofen (Advil, Motrin)600mg and Tylenol (acetaminophen) every 3 hours for pain or fever. Take with food. Do NOT take for more than 4-5 days. - swish and spit with warm, salt water 2-3 times per day - Take antibiotics as prescribed until gone - Okay to apply a very small amount of the numbing medication to your tooth every 4 hours as instructed - do not apply more frequently - Keep your appointment as scheduled with [facility] - Billing Disposition and Condition Condition: STABLE Disposition: Home - Attestation Statements Document Initiated by Scribe: Yes Documenting Scribe: Maximiliano Worrell Provider For Whom Scribe is Documenting (Include Credential): Nadeen Mcgovern MD Scribe Attestation: I, Maximiliano Worrell, scribed for Nadeen Mcgovern MD on 07/06/19 at 0927. Scribe Documentation Reviewed: Yes Provider Attestation: The documentation as recorded by the narcisoibe, Maximiliano Worrell accurately reflects the service I personally performed and the decisions made by me, Nadeen Mcgovern MD Status of Scribe Document: Viewed
== END 2019-07-06 09:09 | disposition home or self-care (01) ==
LOC: ED 08:19
DX: K08.89 Other specified disorders of teeth and supporting structures (principal); K03.81 Cracked tooth; K02.9 Dental caries, unspecified; M32.9 Systemic lupus erythematosus, unspecified; E11.9 Type 2 diabetes mellitus without complications; Z79.84 Long term (current) use of oral hypoglycemic drugs; I10 Essential (primary) hypertension; J45.909 Unspecified asthma, uncomplicated; Z79.82 Long term (current) use of aspirin; K21.9 Gastro-esophageal reflux disease without esophagitis; M79.7 Fibromyalgia; F32.9 Major depressive disorder, single episode, unspecified; F17.210 Nicotine dependence, cigarettes, uncomplicated
CPT/HCPCS: 99281

== ENCOUNTER 2022-04-13 18:53 | Inpatient (IN) ==
[2022-04-13] MEDS ORDERED: NS 0.9% 1000 ml BAG 2,000 ML IV ONE (19:01)
[2022-04-13 19:48] LABS: ABS Lymphocytes 3.6 10^3/ul (1.0-4.8); ABS Monocytes 1.4 10^3/ul (0-0.8); ABS Neutrophils 6.6 10^3/ul (1.5-7.7); Eosinophil % 0.1 %; Hematocrit 37 % (35-47); Hemoglobin 12.1 g/dL (12.0-16.0); Lymphocyte % 31.1 %; Mean Corpuscular HGB Conc 33 g/dL (31-36); Mean Corpuscular Hemoglobin 31 pg (27-31); Mean Corpuscular Volume 93 fL (80-97); Mean Platelet Volume 7.9 fL (7.4-10.4); Platelet Count 299 10^3/uL (150-450); Red Blood Count 3.95 10^6 /uL (3.70-4.87); Red Cell Distribution Width 15 % (10-15); White Blood Count 11.6 10^3/uL (3.5-10.8)
[2022-04-13 20:14] LABS: High Sens Troponin Baseline 5 pg/mL (<15)
[2022-04-13 20:26] LABS: ALT 32 U/L (7-52); AST 50 U/L (13-39); Acetaminophen < 15 mcg/mL; Albumin/Globulin Ratio 1.3 (1-3); Alcohol, S < 13 mg/dL (<13); Alkaline Phosphatase 108 U/L (35-149); Anion Gap 15 mmol/L (2-11); Blood Urea Nitrogen 22 mg/dL (6-24); CO2 Carbon Dioxide 24 mmol/L (22-32); Calcium 8.7 mg/dL (8.6-10.3); Chloride 97 mmol/L (101-111); Glucose 234 mg/dL (70-100); Potassium 3.9 mmol/L (3.5-5.0); Sodium 136 mmol/L (135-145); eGFR CKD-EPI 18.4 (>60)
[2022-04-13 20:32] LABS: HCG Pregnancy 0.74 mIU/mL
[2022-04-13 21:37] LABS: High Sensitivity Troponin 1 Hr 4 pg/mL (<15)
[2022-04-13] MEDS ORDERED: Ondansetron 4 mg VIAL 2 MG/ML 2 ml VIAL IV PRN (23:26)
[2022-04-13] MEDS ORDERED: CMCS: Meloxicam 7.5 mg TAB (NF) PO PRN (23:40)
[2022-04-14] MEDS ORDERED: Lactated Ringers 1000 ml BAG 1,000 ML IV SCH (01:00)
[2022-04-14] MEDS ORDERED: Remdesivir 100 mg Vial 200 MG in NS 0.9% 250 ml 210 ML IV ONE (01:00)
[2022-04-14 01:08] LABS: INR 1.06 (0.89-1.11)
[2022-04-14 01:11] LABS: Activated Partial Thrombo Time 31.3 seconds (26.0-38.0); INR 1.02 (0.89-1.11)
[2022-04-14 01:47] LABS: Urine Appearance Turbid; Urine Bilirubin Negative (Negative); Urine Blood 1+ (Negative); Urine Color Amber; Urine Glucose 1+(50 mg/dL) (Negative); Urine Ketones Negative (Negative); Urine Nitrite Negative (Negative); Urine Protein 2+(100 mg/dL) (Negative); Urine Specific Gravity 1.011 (1.002-1.030); Urine Urobilinogen Negative (Negative)
[2022-04-14 01:51] LABS: Urine Bacteria 2+ (Absent); Urine Granular Casts Present (Absent); Urine Red Blood Cell 2+(6-10/hpf) (Absent); Urine Squamous Epithelial Cell Present (Absent); Urine White Blood Cell 3+(>20/hpf) (Absent)
[2022-04-14 02:00] LABS: Calcium 8.4 mg/dL (8.6-10.3); eGFR CKD-EPI 21.2 (>60)
[2022-04-14 02:01] LABS: Urine Benzodiazepine Screen None Detected (None Detect); Urine Cannabinoids Screen None Detected (None Detect); Urine Opiates Screen None Detected (None Detect)
[2022-04-14 02:02] LABS: Albumin/Globulin Ratio 1.4 (1-3); Calcium 8.4 mg/dL (8.6-10.3); Globulin 2.8 g/dL (2-4); Total Bilirubin 0.5 mg/dL (0.2-1.0); Total Protein 6.8 g/dL (6.4-8.9); eGFR CKD-EPI 21.2 (>60)
[2022-04-14] MEDS: Dexamethasone IV 4 MG/ML VIAL 1 ml VIAL IV SLOW PU SCH ×2 (02:26→10:54)
[2022-04-14] MEDS: cefTRIAXone 1 gm/50 mL D5W 1 GM/50 ML BAG IV SCH (03:47)
[2022-04-14 05:47] LABS: ABS Lymphocytes 2.2 10^3/ul (1.0-4.8); ABS Monocytes 0.8 10^3/ul (0-0.8); ABS Neutrophils 8.2 10^3/ul (1.5-7.7); Eosinophil % 0.1 %; Hematocrit 34 % (35-47); Hemoglobin 11.4 g/dL (12.0-16.0); Lymphocyte % 19.5 %; Mean Corpuscular HGB Conc 33 g/dL (31-36); Mean Corpuscular Hemoglobin 32 pg (27-31); Mean Corpuscular Volume 95 fL (80-97); Mean Platelet Volume 7.9 fL (7.4-10.4); Platelet Count 285 10^3/uL (150-450); Red Blood Count 3.63 10^6 /uL (3.70-4.87); Red Cell Distribution Width 16 % (10-15); White Blood Count 11.2 10^3/uL (3.5-10.8)
[2022-04-14] MEDS: Heparin 5000 UNITS/ML 1 mL VIAL SUBCUT SCH ×3 (06:21→21:35)
[2022-04-14 06:34] LABS: Albumin/Globulin Ratio 1.3 (1-3); C Reactive Protein 170.75 mg/L (<8.01); Calcium 8.4 mg/dL (8.6-10.3); Direct Bilirubin 0.1 mg/dL (0.03-0.18); Indirect Bilirubin 0.3 mg/dL (0.3-1.0); Total Bilirubin 0.4 mg/dL (0.2-1.0); eGFR CKD-EPI 27.9 (>60)
[2022-04-14 06:37] LABS: Urine Creatinine Concentration 127.67 mg/dL
[2022-04-14] MEDS: Aspirin EC 81 mg TAB.EC (enteric coated) PO SCH (12:18)
[2022-04-14] MEDS: Acetaminophen IV 1 GM/100ML 1,000 MG/100 ML BAG IV PRN (12:19)
[2022-04-14] MEDS: SULFASALAZINE 500 MG PO SCH ×2 (12:19→21:15)
[2022-04-14] MEDS: Insulin GLARGINE 100 un/ml 10 ml VIAL SUBCUT SCH (21:11)
[2022-04-14] MEDS: Carbidopa/Levodop 10/100 MG TAB PO SCH (21:13)
[2022-04-14] MEDS: Lactated Ringers 1000 ml BAG 1,000 ML IV SCH (21:31)
[2022-04-15] MEDS: cefTRIAXone 1 gm/50 mL D5W 1 GM/50 ML BAG IV SCH (03:45)
[2022-04-15] MEDS: Heparin 5000 UNITS/ML 1 mL VIAL SUBCUT SCH ×3 (05:18→21:49)
[2022-04-15 05:44] LABS: ABS Lymphocytes 2.7 10^3/ul (1.0-4.8); ABS Monocytes 0.6 10^3/ul (0-0.8); ABS Neutrophils 5.4 10^3/ul (1.5-7.7); Eosinophil % 0.1 %; Hematocrit 34 % (35-47); Hemoglobin 11.6 g/dL (12.0-16.0); Lymphocyte % 31.2 %; Mean Corpuscular HGB Conc 35 g/dL (31-36); Mean Corpuscular Hemoglobin 32 pg (27-31); Mean Corpuscular Volume 93 fL (80-97); Mean Platelet Volume 7.9 fL (7.4-10.4); Platelet Count 304 10^3/uL (150-450); Red Blood Count 3.64 10^6 /uL (3.70-4.87); Red Cell Distribution Width 15 % (10-15); White Blood Count 8.7 10^3/uL (3.5-10.8)
[2022-04-15 05:48] LABS: INR 1.07 (0.89-1.11)
[2022-04-15 06:17] LABS: Albumin 3.7 g/dL (3.2-5.2); Calcium 8.5 mg/dL (8.6-10.3); Globulin 2.7 g/dL (2-4); Total Protein 6.4 g/dL (6.4-8.9); eGFR CKD-EPI 71.3 (>60)
[2022-04-15 06:18] LABS: Albumin/Globulin Ratio 1.4 (1-3); Total Bilirubin 0.4 mg/dL (0.2-1.0)
[2022-04-15] MEDS: Dexamethasone IV 4 MG/ML VIAL 1 ml VIAL IV SLOW PU SCH (08:00)
[2022-04-15] MEDS: Remdesivir 100 mg Vial 100 MG in NS 0.9% 250 ml 230 ML IV SCH (08:02)
[2022-04-15] MEDS: Aspirin EC 81 mg TAB.EC (enteric coated) PO SCH (08:02)
[2022-04-15] MEDS: SULFASALAZINE 500 MG PO SCH ×2 (08:12→21:51)
[2022-04-15 08:29] LABS: Phosphorus 1.8 mg/dL (2.5-5.0)
[2022-04-15] MEDS: Potassium Acid Phos 500 mg TAB PO SCH ×4 (10:34→21:49)
[2022-04-15] MEDS: Lactated Ringers 1000 ml BAG 1,000 ML IV SCH (11:50)
[2022-04-15] MEDS: Carbidopa/Levodop 10/100 MG TAB PO SCH (21:49)
[2022-04-15] MEDS: Insulin GLARGINE 100 un/ml 10 ml VIAL SUBCUT SCH (21:50)
[2022-04-16] MEDS: cefTRIAXone 1 gm/50 mL D5W 1 GM/50 ML BAG IV SCH (02:57)
[2022-04-16] MEDS: Heparin 5000 UNITS/ML 1 mL VIAL SUBCUT SCH ×3 (05:55→21:06)
[2022-04-16 06:47] LABS: ABS Lymphocytes 2.4 10^3/ul (1.0-4.8); ABS Monocytes 0.6 10^3/ul (0-0.8); ABS Neutrophils 6.2 10^3/ul (1.5-7.7); Hematocrit 35 % (35-47); Hemoglobin 12.3 g/dL (12.0-16.0); INR 1.03 (0.89-1.11); Lymphocyte % 25.6 %; Mean Corpuscular HGB Conc 35 g/dL (31-36); Mean Corpuscular Hemoglobin 32 pg (27-31); Mean Corpuscular Volume 93 fL (80-97); Mean Platelet Volume 8.1 fL (7.4-10.4); Platelet Count 396 10^3/uL (150-450); Red Blood Count 3.81 10^6 /uL (3.70-4.87); Red Cell Distribution Width 15 % (10-15); White Blood Count 9.3 10^3/uL (3.5-10.8)
[2022-04-16 07:00] LABS: Albumin 3.9 g/dL (3.2-5.2); Albumin/Globulin Ratio 1.3 (1-3); Calcium 9.1 mg/dL (8.6-10.3); Globulin 2.9 g/dL (2-4); Potassium 3.1 mmol/L (3.5-5.0); Total Bilirubin 0.5 mg/dL (0.2-1.0); Total Protein 6.8 g/dL (6.4-8.9); eGFR CKD-EPI 90.2 (>60)
[2022-04-16] MEDS: SULFASALAZINE 500 MG PO SCH (07:25)
[2022-04-16] MEDS: KCL 20 MEQ/100 ML IVPREMIX 20 MEQ/100 ML BAG IV SCH ×3 (08:38→13:42)
[2022-04-16] MEDS: Aspirin EC 81 mg TAB.EC (enteric coated) PO SCH (08:38)
[2022-04-16] MEDS: Remdesivir 100 mg Vial 100 MG in NS 0.9% 250 ml 230 ML IV SCH (09:56)
[2022-04-16] MEDS: Dexamethasone IV 4 MG/ML VIAL 1 ml VIAL IV SLOW PU SCH (09:57)
[2022-04-16] MEDS ORDERED: Dextrose 50% Syringe 50 ml 25 GM/50 ML SYRINGE IV PUSH PRN (16:09)
[2022-04-16] MEDS: Carbidopa/Levodop 10/100 MG TAB PO SCH (21:05)
[2022-04-16] MEDS: Insulin GLARGINE 100 un/ml 10 ml VIAL SUBCUT SCH (21:07)
[2022-04-17] MEDS: cefTRIAXone 1 gm/50 mL D5W 1 GM/50 ML BAG IV SCH (03:28)
[2022-04-17] MEDS: Heparin 5000 UNITS/ML 1 mL VIAL SUBCUT SCH ×3 (05:24→21:42)
[2022-04-17 06:38] LABS: INR 1.05 (0.89-1.11)
[2022-04-17 06:50] LABS: Albumin 3.8 g/dL (3.2-5.2); Albumin/Globulin Ratio 1.2 (1-3); Calcium 9.5 mg/dL (8.6-10.3); Globulin 3.2 g/dL (2-4); Potassium 3.5 mmol/L (3.5-5.0); Total Bilirubin 0.5 mg/dL (0.2-1.0); eGFR CKD-EPI 111.1 (>60)
[2022-04-17] MEDS: Aspirin EC 81 mg TAB.EC (enteric coated) PO SCH (09:18)
[2022-04-17] MEDS: Dexamethasone IV 4 MG/ML VIAL 1 ml VIAL IV SLOW PU SCH (09:20)
[2022-04-17] MEDS: Insulin GLARGINE 100 un/ml 10 ml VIAL SUBCUT SCH (21:43)
[2022-04-17] MEDS: Carbidopa/Levodop 10/100 MG TAB PO SCH (21:50)
[2022-04-18] MEDS: cefTRIAXone 1 gm/50 mL D5W 1 GM/50 ML BAG IV SCH (03:07)
[2022-04-18] MEDS: Heparin 5000 UNITS/ML 1 mL VIAL SUBCUT SCH ×3 (05:04→21:17)
[2022-04-18 06:58] LABS: Hematocrit 40 % (35-47); Hemoglobin 13.6 g/dL (12.0-16.0); Mean Corpuscular HGB Conc 34 g/dL (31-36); Mean Corpuscular Hemoglobin 31 pg (27-31); Mean Corpuscular Volume 92 fL (80-97); Mean Platelet Volume 7.9 fL (7.4-10.4); Platelet Count 646 10^3/uL (150-450); Red Blood Count 4.38 10^6 /uL (3.70-4.87); Red Cell Distribution Width 15 % (10-15); White Blood Count 13.3 10^3/uL (3.5-10.8)
[2022-04-18 07:02] LABS: INR 1.11 (0.89-1.11)
[2022-04-18 07:21] LABS: Albumin 4.5 g/dL (3.2-5.2); Albumin/Globulin Ratio 1.3 (1-3); Calcium 9.5 mg/dL (8.6-10.3); Globulin 3.6 g/dL (2-4); Total Bilirubin 0.6 mg/dL (0.2-1.0); Total Protein 8.1 g/dL (6.4-8.9); eGFR CKD-EPI 84.1 (>60)
[2022-04-18 07:58] LABS: Phosphorus 5.5 mg/dL (2.5-5.0)
[2022-04-18] MEDS: Aspirin EC 81 mg TAB.EC (enteric coated) PO SCH (08:39)
[2022-04-18] MEDS ORDERED: Potassium Chlor 20 meq TAB.ER PO SCH (09:00)
[2022-04-18 09:19] LABS: ABS Eosinophils 0.1 10^3/ul (0-0.6); ABS Lymphocytes 5.2 10^3/ul (1.0-4.8); ABS Monocytes 0.9 10^3/ul (0-0.8); ABS Neutrophils 7.1 10^3/ul (1.5-7.7); Eosinophil % 0.4 %; Lymphocyte % 39.5 %
[2022-04-18] MEDS: Potassium Chlor 20 meq TAB.ER PO SCH ×2 (11:30→12:59)
[2022-04-18] MEDS: DULoxetine DR 60 mg CAP PO SCH (11:30)
[2022-04-18 13:02] LABS: Venous Bicarbonate HCO3 26.2 mmol/L (24-28)
[2022-04-18 14:47] LABS: C Reactive Protein 81.83 mg/L (<8.01); Calcium 9.7 mg/dL (8.6-10.3); Potassium 3.4 mmol/L (3.5-5.0); eGFR CKD-EPI 79.7 (>60)
[2022-04-18] MEDS ORDERED: NS 0.9% 1000 ml BAG 1,000 ML IV ONE (15:11)
[2022-04-18] MEDS ORDERED: Dextrose 50% Syringe 50 ml 25 GM/50 ML SYRINGE IV PUSH PRN (15:16)
[2022-04-18 16:17] LABS: Urine Appearance Clear; Urine Bilirubin Negative (Negative); Urine Blood 1+ (Negative); Urine Color Yellow; Urine Glucose 1+(50 mg/dL) (Negative); Urine Ketones Negative (Negative); Urine Nitrite Negative (Negative); Urine Protein 1+(30 mg/dL) (Negative); Urine Specific Gravity 1.009 (1.002-1.030); Urine Urobilinogen Negative (Negative)
[2022-04-18 16:41] LABS: Urine Bacteria Absent (Absent); Urine Red Blood Cell Trace(0-2/hpf) (Absent); Urine Squamous Epithelial Cell Present (Absent); Urine White Blood Cell Trace(0-5/hpf) (Absent)
[2022-04-18] MEDS: Acetaminophen IV 1 GM/100ML 1,000 MG/100 ML BAG IV PRN (16:52)
[2022-04-18] MEDS ORDERED: Insulin GLARGINE 100 un/ml 10 ml VIAL SUBCUT SCH (21:00)
[2022-04-18] MEDS: NS 0.9% 1000 ml BAG 1,000 ML IV SCH (21:34)
[2022-04-19] MEDS: Acetaminophen IV 1 GM/100ML 1,000 MG/100 ML BAG IV PRN (02:03)
[2022-04-19] MEDS: cefTRIAXone 1 gm/50 mL D5W 1 GM/50 ML BAG IV SCH (03:19)
[2022-04-19] MEDS: NS 0.9% 1000 ml BAG 1,000 ML IV SCH (05:51)
[2022-04-19] MEDS: Heparin 5000 UNITS/ML 1 mL VIAL SUBCUT SCH ×2 (05:52→14:31)
[2022-04-19 06:47] LABS: Hematocrit 37 % (35-47); Hemoglobin 12.4 g/dL (12.0-16.0); Mean Corpuscular HGB Conc 34 g/dL (31-36); Mean Corpuscular Hemoglobin 31 pg (27-31); Mean Corpuscular Volume 92 fL (80-97); Mean Platelet Volume 7.6 fL (7.4-10.4); Platelet Count 580 10^3/uL (150-450); Red Blood Count 4.01 10^6 /uL (3.70-4.87); Red Cell Distribution Width 15 % (10-15); White Blood Count 10.7 10^3/uL (3.5-10.8)
[2022-04-19 06:49] LABS: INR 1.08 (0.89-1.11)
[2022-04-19 06:53] LABS: ABS Basophils 0.1 10^3/ul (0-0.2); ABS Eosinophils 0.1 10^3/ul (0-0.6); ABS Lymphocytes 5.7 10^3/ul (1.0-4.8); ABS Monocytes 0.7 10^3/ul (0-0.8); Lymphocyte % 53.9 %
[2022-04-19 07:08] LABS: Albumin 3.7 g/dL (3.2-5.2); Albumin/Globulin Ratio 1.3 (1-3); C Reactive Protein 44.27 mg/L (<8.01); Calcium 8.7 mg/dL (8.6-10.3); Globulin 2.8 g/dL (2-4); Phosphorus 3.8 mg/dL (2.5-5.0); Potassium 3.6 mmol/L (3.5-5.0); Total Bilirubin 0.6 mg/dL (0.2-1.0); Total Protein 6.5 g/dL (6.4-8.9); eGFR CKD-EPI 112.2 (>60)
[2022-04-19] MEDS: DULoxetine DR 60 mg CAP PO SCH (08:49)
[2022-04-19] MEDS: Aspirin EC 81 mg TAB.EC (enteric coated) PO SCH (08:49)
[2022-04-19] MEDS ORDERED: Potassium Chlor 10 meq TAB PO SCH (09:00)
[2022-04-19 10:38] VITALS: BP 157/92
== END 2022-04-19 18:30 | disposition home or self-care (01) | DRG 871 ==
LOC: ED 18:53 → SUATTDRO 23:22 → EDHOLD 23:22 → MED 04-14 10:15
PROVIDERS: ADMIT Student in an Organized Health Care Education/Training Program; ATTEND Internal Medicine